=== PATIENT | female | born 1950 | race Caucasian/White ===

== ENCOUNTER 2024-05-04 16:08 | Emergency (ER) | payer MEDICARE, SELFPAY ==
[2024-05-04 16:21] VITALS: BP 132/62
[2024-05-04 17:55] LABS: % Basophils 0.5 % (0-2); % Eosinophils 1.4 % (0-6); % Immature Granulocytes 0.3 % (0-0.5); % Lymphocytes 27.4 % (20.5-51.1); % Monocytes 6.9 % (1.7-9.3); % Neutrophils 63.5 % (42.2-75.2); Absolute Eosinophils 0.1 10^3/uL (0-0.7); Absolute Lymphocytes 1.6 10^3/uL (1.2-3.4); Absolute Monocytes 0.4 10^3/uL (0.1-0.6); Absolute Neutrophils 3.7 10^3/uL (1.4-6.5); Hematocrit 35.6 % (37.0-47.0); Mean Corp Hgb Conc. 33.7 g/dL (33.0-37.0); Mean Corpuscular Hgb 31.7 pg (27.0-31.0); Mean Corpuscular Volume 93.9 fL (81.0-99.0); Mean Platelet Volume 11.1 fL (7.4-10.4); Nucleated Red Blood Cells % 0 %; Platelet Count 209 10^3/uL (130-400); Red Blood Cell Count 3.79 10^6/uL (4.20-5.40); Red Cell Dist. Width 13.1 % (11.5-14.5); White Blood Cell Count 5.8 10^3/uL (4.8-10.8)
[2024-05-04 17:56] LABS: Urine Albumin Trace (Neg - Trace); Urine Bilirubin 1+ (Negative); Urine Character Clear (Clear); Urine Color Yellow; Urine Glucose Negative (Negative); Urine Ketone Negative (Negative); Urine Leukocyte Trace (Negative); Urine Nitrite Negative (Negative); Urine Occult Blood Negative (Negative); Urine Specific Gravity 1.015 (<1.030); Urine Urobilinogen Negative (Neg - 1+); Urine pH 6.5 (5.0-9.0)
[2024-05-04 18:20] LABS: ALT (SGPT) 54 U/L (0-35); AST (SGOT) 48 U/L (14-36); Albumin 4.2 g/dl (3.5-5.0); Alkaline Phosphatase 131 U/L (38-126); Blood Urea Nitrogen 25 mg/dl (7-17); Carbon Dioxide 27 mmol/L (22-30); Chloride 102 mmol/L (98-107); Glucose 129 mg/dl (70-99); Potassium 4.3 mmol/L (3.5-5.1); Sodium 136 mmol/L (135-145); Total Bilirubin 0.4 mg/dl (0.2-1.3); Total Protein 6.6 g/dl (6.3-8.2); eGFR 43.15
--- NOTE | 2024-05-04 18:23 | ED.GENMED ---
History of Present Illness
General
Chief Complaint: Urinary Symptoms
Source: patient
Time Seen by Provider: 05/04/24 17:04
History of Present Illness
History of Present Illness:
74-year-old female with past medical history of asthma/COPD, previous colon cancer (treated over 20 years ago) and aof-rbtfylr-yawxwdxrc diabetes presenting to the ER stating she has felt as if she has had difficulty urinating since 11:30 PM
yesterday evening. Patient states that over the last 2 years she has felt a constant urge to urinate and sometimes is unable to do so, today seemed a little bit worse than usual which is what prompted her to come to the ER. She denies any fevers,
chills, rigors, back or flank pain, nausea or vomiting. She states she has not seen any medical provider for her difficulty urinating or occasional urinary hesitancy. She does note that her urinary stream feels a little bit weaker than it normally
is over the last 2 years. Patient has no other concerns at this time. She does note that she did not drink very much today noting she only had a small bottle of propel.
Past History
Past History
ED Past Medical History: Asthma, Cancer (colon ca in remission s/p rdx, chemo and partial bowel ressection in 2002), COPD, Hypercholesterolemia and NIDDM
ED Past Surgical History: Other (partial bowel ressection in 2002)
Social History
Tobacco: Non-smoker
Alcohol: None
Drug: None
Personal:
Living: with family
Employment: Retired
Family History
Family History: Other (nc)
Review of Systems
Review of Systems
All Other Systems: ROS reviewed and negative except as documented in HPI and ROS
Phy Exam
Physical Exam
Physical Exam:
GENERAL: Alert , in no apparent distress
EYE: clear conjunctiva b/l
HEAD: NCAT
ENT: mmm.
CARDIAC: Regular rate and rhythm .
LUNGS: Clear breath sounds bilaterally, no acute respiratory distress, no wheezes/rales/rhonchi
ABDOMEN: Soft, without focal tenderness, no r/g, no cvat
NEUROLOGICAL: Alert and oriented
SKIN: Warm and dry, skin intact.
MUSCULOSKELETAL: well perfused.
PSYCH: Normal and appropriate interaction.
Scores
Heart Failure Risk
Heart Failure Risk Score: Not Applicable
Heart Score for Chest Pain Patients
STEMI patient?: Not applicable
Withdrawal Assessment of Alcohol
Withdrawal Assessment Completed?: Not applicable
Course
Orders/Labs/Results
Orders:
Orders
05/04/24 17:04
Bladder Scan- Treatment ONCE
05/04/24 17:28
Urinalysis Reflex To Culture Urgent
Date Specimen was Collected: 05/04/24
Time Specimen was Collected: 17:26
Urine Microscopic Reflex Cult Urgent
Urine Culture Urgent
JONATHAN Source: U
Specimen Description:
Date Specimen was Collected: 05/04/24
Time Specimen was Collected: 17:26
05/04/24 17:39
Complete Blood Count/With Diff Urgent
Comprehensive Metabolic Panel Urgent
Abnormal Lab Results
05/04/24 05/04/24
17:28 17:39
RBC 3.79 L 10^6/uL
(4.20-5.40)
Hct 35.6 L %
(37.0-47.0)
MCH 31.7 H pg
(27.0-31.0)
MPV 11.1 H fL
(7.4-10.4)
BUN 25 H mg/dl
(7-17)
Creatinine 1.3 H mg/dL
(0.6-1.0)
Glucose 129 H mg/dl
(70-99)
AST 48 H U/L
(14-36)
ALT 54 H U/L
(0-35)
Alkaline Phosphatase 131 H U/L
(38-126)
Urine Bilirubin 1+ A
(Negative)
Leukocyte Esterase Rfl Trace A
(Negative)
Urine Bacteria (Reflex) Moderate A
(Negative)
05/04/24 17:39
05/04/24 17:39
Vital Signs
Initial and Last Documented VS:
Initial Vital Signs
Temp Pulse Resp BP Pulse Ox
98.1 F 77 18 132/62 93
05/04/24 16:21 05/04/24 16:21 05/04/24 16:21 05/04/24 16:21 05/04/24 16:21
Last Documented Vital Signs
Temp Pulse Resp BP Pulse Ox
98.1 F 66 16 145/58 98
05/04/24 16:21 05/04/24 18:29 05/04/24 18:29 05/04/24 18:29 05/04/24 18:29
MDM/Problems Addressed
Differential Diagnosis Includes:
UTI, bladder outlet obstruction, intrarenal kidney disease, prerenal dehydration due to poor oral intake today
MDM/Problems Addressed:
74-year-old female presenting the ER for evaluation reported difficulty urinating. Bedside bladder scan shows 250 mL of urine and postvoid residual shows 80 mL. Given patient had about 16 hours in between urinating I would have expected
significantly more urine within patient's bladder and I suspect that she has not had much oral intake today which is the likely cause of her diminished urinary output. Will check patient's labs to evaluate her renal function as well as
electrolytes. Urinalysis to be sent. Given patient's symptoms have been ongoing for approximately 2 years I do suspect this is more likely a chronic issue as opposed to acute and patient would likely benefit from urology follow-up. I will also
notify patient's primary care to try and expedite follow-up.
*Pulse Oximetry
Patient hypoxic: no
*Critical Care Note
Total Time (30-74mins, 75-104mins- exclusive of procedures): Not Applicable
Data Reviewed
Review of Other/Old Records Reveals: Labs and Records
Source: patient
Patient Management
Discussion with other providers: PCP
Escalation/DeEscalation of care consider admission/obs:
Patient's labs are noted for mild ZAC. Patient's BUN is slightly elevated at 25 which correlates with patient's poor p.o. intake. Patient also has very mild LFT elevation. I did offer IV fluids however patient states she would just like to go
home and continue with p.o. hydration. Following discussion of labs patient did request she have medication for constipation as she also notes this is a chronic issue for her. We did discuss some dietary modifications she can make as well as did
send a prescription for MiraLAX and Colace to patient. I notified patient's primary care provider of labs and ER workup. They will follow-up as an outpatient.
ED Attending Note
-
Portions of this chart may have been created with voice recognition software.� Occasional wrong word or��sound alike� substitutions may have occurred due to the inherent limitations of voice recognition software.
Discharge Plan
Departure
Patient Disposition: Home (Routine Discharge)
Date of Disposition: 05/04/24
Time of Disposition: 18:54
Patient with high blood pressure during this ER visit?: Yes
Discharge Problem:
Urinary hesitancy
Instructions: Acute kidney injury
Prescriptions:
New
polyethylene glycol 3350 [Gavilax] 17 gram powder in packet
17 g PO DAILY PRN (Reason: Constipation) Qty: 14 0RF
docusate sodium [Colace] 100 mg capsule
100 mg PO BID Qty: 10 0RF
No Action
fluticasone propion-salmeterol [Advair Diskus] 1 DISK blister with device
1 puff inhalation DAILYPRN PRN (Reason: shortness of breath)
ibuprofen 200 MG tablet
200 mg PO Q4HPRN PRN (Reason: pain)
clonazepam 1 MG tablet
1 mg PO HS Qty: 30 0RF
metformin 500 MG tablet
500 mg PO DAILY Qty: 30 0RF
venlafaxine [Effexor XR] 150 MG capsule,extended release 24hr
150 mg PO BID Qty: 60 0RF
doxepin 10 MG/ML concentrate
50 mg PO HS Qty: 150 0RF
gabapentin 300 MG capsule
300 mg PO HS Qty: 30 0RF
metformin 500 MG tablet
500 mg PO BID Qty: 20 1RF
clonazepam 1 mg tablet
1 mg PO BID Qty: 14 0RF
Referrals:
Reba Godinez MD [Family Provider] -
Jesus Alberto Ovalle MD [Active] - (Urology - Please call for appointment)
Interventions
Interventions:
*Risk Screen - Suicide Last Done: 05/04/24 16:21
*General Assessment Last Done: 05/04/24 16:21
*Neglect/Abuse Screening Last Done: 05/04/24 16:21
ED- Fall Risk Assessment Last Done: 05/04/24 17:22
*Nursing Disposition Last Done: 05/04/24 19:05
ED-Female Genitourinary Assessment Last Done: 05/04/24 17:21
Discharge Date and Time
Discharge Date/Time: 05/04/24 19:06
Print Language: PERSIAN
[2024-05-04 18:24] LABS: Urine Bacteria Moderate (Negative); Urine Red Blood Cell 0-2 /HPF (0-2)
[2024-05-04 18:29] VITALS: BP 145/58
== END 2024-05-04 19:06 | disposition home or self-care (01) ==
LOC: EMR 16:08
PROVIDERS: Physician Assistant Medical; EMERGENCY PHYSICIAN Emergency Medicine; FAMILY PHYSICIAN Family Medicine
DX: R39.11 Hesitancy of micturition (principal); J44.89 Other specified chronic obstructive pulmonary disease; E78.00 Pure hypercholesterolemia, unspecified; E11.9 Type 2 diabetes mellitus without complications; Z85.038 Personal history of other malignant neoplasm of large intestine
CPT/HCPCS: 99283; 80053; 81003; 81015; 85025; 87086

== ENCOUNTER → 2024-09-02 11:27 | Outpatient (REF) | payer MEDICARE, SELFPAY | LOC: RAD 11:27 | PROVIDERS: ATTENDING PHYSICIAN Nurse Practitioner Family | DX: M54.50 Low back pain, unspecified (principal) | CPT/HCPCS: 72110 ==

== ENCOUNTER → 2024-09-04 11:22 | Outpatient (REF) | payer MEDICARE, SELFPAY | LOC: WDC 11:22 | PROVIDERS: ATTENDING PHYSICIAN Nurse Practitioner Family | DX: Z12.31 Encounter for screening mammogram for malignant neoplasm of breast (principal) | CPT/HCPCS: 77063; 77067 ==

== ENCOUNTER 2025-08-24 08:56 | Inpatient (IN) | payer MEDICARE, SELFPAY ==
[2025-08-24] VITALS (23 sets, daily range): BP systolic 119–155; BP diastolic 50–112; BMI 29.2; BMI 29.3
--- NOTE | 2025-08-24 03:37 | ED.GENMED ---
History of Present Illness
<Vickie Dacosta PA-C - Last Filed: 08/24/25 07:31>
General
Chief Complaint: Musculo-Skeletal Complaint
Source: patient
Exam Limitations: none
Time Seen by Provider: 08/24/25 03:24
Nursing documentation reviewed up to this point in time: agreed with
History of Present Illness
History of Present Illness:
Note:
CHIEF COMPLAINT(S)
Fall with right ankle pain and swelling.
HISTORY OF PRESENT ILLNESS
The patient is a 75-year-old female with pmh of asthma, COPD, hlp, ADHD, anxiety, depression, diabetes, who presented with right ankle pain following a fall that occurred approximately one week ago. She reports that she went to the bathroom, which
has a ceramic floor, and fell. During the fall, she twisted her left ankle, resulting in bruising and significant pain. The patient describes the bruise as having been purple, extending along her leg. She reports that the pain is primarily in the
foot and the ankle, especially the back of the ankle. She is able to walk short distances, approximately 20 feet, with a perfectly flat foot without much pain, but she is unable to weight-bear fully due to discomfort. The patient states, �Even
though I can walk with a perfectly flat foot and it hurts a lot.� She denies head trauma, loss of consciousness, neck pain, chest pain, abdominal pain. The patient expresses concern regarding potential surgery and worries about increased injury risk
due to balance issues.
PAST MEDICAL AND SURGICAL HISTORY
The patient denies previous fractures, surgeries on the feet or legs, or any bone-related surgeries.
SOCIAL DETERMINANTS AFFECTING HEALTH
The patient lives at home with her son and is worried about mobility within her home given her current condition. The layout of her house, with steps leading to the bathroom, may pose additional risks due to her balance issues. She would be unable
to use crutches
PHYSICAL EXAM
General: Alert, no acute distress.
Skin: Warm, dry.
Head: Normocephalic, atraumatic.
Neck: Supple, trachea midline. No midline spinal tenderness.
Eye, Ears, Nose, Mouth and Throat: Oral mucosa moist.
Cardiovascular: Regular rate and rhythm. Normal peripheral perfusion, no edema.
Respiratory: Respirations are non-labored.
Gastrointestinal: No abdominal tenderness to palpation. Abdomen nondistended.
Back: Normal range of motion, normal alignment.
Musculoskeletal: Pain and tenderness noted over the right ankle with bruising, no proximal tenderness. No tenderness to the anterior knee. No pain with roation of the hip.
Neurological: Sensation intact. CN II-XII intact. Alert and oriented to person, place, time, and situation, no focal neurological deficit observed.
Psychiatric: Cooperative, appropriate mood & affect.
PROBLEM LIST
Acute:
1. Left tibia fracture.
PLAN
1. Splint the left ankle to prevent movement and potential displacement of the fracture.
2. Consult orthopedics for further evaluation and management; possible surgical intervention due to fracture displacement.
3. Administer analgesics as needed for pain management.
4. Address earwax buildup following stabilization and orthopedic consultation.
DIFFERENTIAL DIAGNOSIS
The Differential Diagnosis includes, in no particular order and is not limited to:
1. Fracture of distal tibia.
2. Sprain or ligament injury of the ankle.
3. Osteoarthritis exacerbation.
4. Soft tissue contusion or hematoma.
5. Balance impairment due to vestibular issues.
6. Osteoporosis implicating fracture risk.
7. Urinary tract infection.
8. Benign paroxysmal positional vertigo (BPPV), given balance issues.
9. Previous neurological conditions leading to balance issues.
10. Medication side effects contributing to urinary symptoms and balance.
CHART REVIEW
Reviewed ER physician documentation from 05/04/2024
Reviewed discharge summary from 05/08/2018, patient seen for metabolic encephalopathy and severe metabolic acidosis of unclear etiology
MDM/DISPOSITION
75-year-old female with a past medical history of hyperlipidemia, asthma, diabetes, presents here today with concerns of right ankle pain following a fall 7 days ago. She reports that pain has gotten worse and she has been unable to bear weight.
On exam, she is neurovascular intact. She has significant swelling over the right ankle and tenderness. X-ray reveals distal tibia fracture. Reviewed case with Dr. Babin, orthopedist on-call. Concern for complex fracture, CT scan ordered.
Dusty will be on patient's case from an orthopedic standpoint will keep patient NPO.
Past History
<Vickie Dacosta PA-C - Last Filed: 08/24/25 07:31>
Past History
ED Past Medical History: Asthma, Cancer (colon ca in remission s/p rdx, chemo and partial bowel ressection in 2002), COPD, Hypercholesterolemia and NIDDM
ED Past Surgical History: Other (partial bowel ressection in 2002)
Social History
Tobacco: Non-smoker
Alcohol: None
Drug: None
Personal:
Living: with family
Employment: Retired
Family History
Family History: Other (nc)
Phy Exam
<Vickie Dacosta PA-C - Last Filed: 08/24/25 07:31>
Physical Exam
Physical Exam:
see hpi
Course
<Vickie Dacosta PA-C - Last Filed: 08/24/25 07:31>
Orders/Labs/Results
Orders:
Orders
08/24/25 02:50
Ankle, Right 3 view CR [CR Ankle - Right Min 3 Views *] Urgent
Comment:
Reason For Exam: injury
08/24/25 04:08
IV Insert/Care/Rem.- Treatment PRN
Short Leg Right-Treatment ONCE
Stirrup Splint Right-Treatment ONCE
08/24/25 04:54
Ketorolac [Toradol] 15 mg IV NOW STA
08/24/25 04:59
Basic Metabolic Panel Urgent
Comment: NO K
Complete Blood Count/With Diff Urgent
08/24/25 Breakfast
NPO
Allow oral meds: Yes
Allow clear liquids: No
08/24/25 06:06
Lower Ext Right wo Contrast CT [CT Lower Ext W/o Iv Cont Rt] Urgent
Comment:
Reason For Exam: right distal tibia fracture
08/24/25 07:11
CLONAZepam [CLONAZepam ODT] 0.5 mg PO NOW STA
Abnormal Lab Results
08/24/25
04:59
RBC 4.08 L 10^6/uL
(4.20-5.40)
MPV 11.0 H fL
(7.4-10.4)
Abs Immat Gran (auto) 0.1 H 10^3/uL
(0-0.05)
Immature Gran % 0.6 H %
(0-0.5)
BUN 24 H mg/dl
(7-17)
Glucose 140 H mg/dl
(70-99)
08/24/25 04:59
08/24/25 04:59
Vital Signs
Initial and Last Documented VS:
Initial Vital Signs
Temp Pulse Resp BP Pulse Ox
98.3 F 73 20 138/55 97
08/24/25 02:26 08/24/25 02:26 08/24/25 02:26 08/24/25 02:26 08/24/25 02:26
Last Documented Vital Signs
Temp Pulse Resp BP Pulse Ox
98.3 F 69 16 146/55 98
08/24/25 02:26 08/24/25 07:16 08/24/25 07:16 08/24/25 07:16 08/24/25 07:16
<Fish Starks, DO - Last Filed: 08/24/25 04:30>
Orders/Labs/Results
Orders:
Orders
08/24/25 02:50
Ankle, Right 3 view CR [CR Ankle - Right Min 3 Views *] Urgent
Comment:
Reason For Exam: injury
08/24/25 04:08
IV Insert/Care/Rem.- Treatment PRN
Short Leg Right-Treatment ONCE
Stirrup Splint Right-Treatment ONCE
08/24/25 04:54
Ketorolac [Toradol] 15 mg IV NOW STA
08/24/25 04:59
Basic Metabolic Panel Urgent
Comment: NO K
Complete Blood Count/With Diff Urgent
08/24/25 Breakfast
NPO
Allow oral meds: Yes
Allow clear liquids: No
08/24/25 06:06
Lower Ext Right wo Contrast CT [CT Lower Ext W/o Iv Cont Rt] Urgent
Comment:
Reason For Exam: right distal tibia fracture
08/24/25 07:11
CLONAZepam [CLONAZepam ODT] 0.5 mg PO NOW STA
Abnormal Lab Results
08/24/25
04:59
RBC 4.08 L 10^6/uL
(4.20-5.40)
MPV 11.0 H fL
(7.4-10.4)
Abs Immat Gran (auto) 0.1 H 10^3/uL
(0-0.05)
Immature Gran % 0.6 H %
(0-0.5)
BUN 24 H mg/dl
(7-17)
Glucose 140 H mg/dl
(70-99)
08/24/25 04:59
08/24/25 04:59
Vital Signs
Initial and Last Documented VS:
Initial Vital Signs
Temp Pulse Resp BP Pulse Ox
98.3 F 73 20 138/55 97
08/24/25 02:26 08/24/25 02:26 08/24/25 02:26 08/24/25 02:26 08/24/25 02:26
Last Documented Vital Signs
Temp Pulse Resp BP Pulse Ox
98.3 F 69 16 146/55 98
08/24/25 02:26 08/24/25 07:16 08/24/25 07:16 08/24/25 07:16 08/24/25 07:16
<Vickie Dacosta PA-C - Last Filed: 08/24/25 07:31>
*Pulse Oximetry
SaO2: 97
Oxygen Mode of Delivery: Room air
Patient hypoxic: no
*Critical Care Note
Total Time (30-74mins, 75-104mins- exclusive of procedures): Not Applicable
ED Attending Note
<Vickie Dacosta PA-C - Last Filed: 08/24/25 07:31>
-
Portions of this chart may have been created with voice recognition software.� Occasional wrong word or��sound alike� substitutions may have occurred due to the inherent limitations of voice recognition software.
<Fish Starks DO - Last Filed: 08/24/25 04:30>
ED Attending Note
Patient seen and examined by attending physician: Yes
I performed the substantive portion of visit, reviewed & personally made and approve the management plan that is documented in note by myself or JAYLON.: Yes
ED Attending Note:
Note:
CHIEF COMPLAINT(S)
Inability to bear weight on the leg due to fractures.
HISTORY OF PRESENT ILLNESS
The patient is a 75-year-old female who presented with an inability to bear weight on her leg due to fractures, which she described as her first experience with broken bones. The injury occurred approximately eight days prior. She expressed
difficulty in mobilizing to the bathroom and reported needing to pull on both sides to navigate to the bathroom due to the pain and instability. The patient mentioned experiencing urgency with urination, noting, 'it doesnt give me any notice.'
PHYSICAL EXAM
General: Alert, no acute distress.
Skin: Warm, dry.
Head: Normocephalic, atraumatic.
Neck: Supple, trachea midline.
Eyes, Ears, Nose, Mouth and Throat: Oral mucosa moist.
Cardiovascular: Normal peripheral perfusion, No edema.
Respiratory: Respirations are non-labored.
Gastrointestinal: Abdomen nondistended.
Back: Normal range of motion, Normal alignment.
Musculoskeletal: Right leg splinted due to fractures.
Neurological: Alert and oriented to person, place, time, and situation. No focal neurological deficit observed.
Psychiatric: Cooperative, appropriate mood & affect.
PROBLEM LIST
Acute:
- Fractures of the leg with inability to ambulate
- Urinary urgency
PLAN
- The patient is to be admitted to the hospital for further evaluation and management of leg fractures.
- Splinting was performed for stabilization.
- Orthopedic consultation will be arranged to determine whether the treatment will be conservative with casting or if surgery is necessary.
- Urology consultation may be considered to address urinary urgency.
DIFFERENTIAL DIAGNOSIS
The Differential Diagnosis includes, in no particular order and is not limited to:
1. Fracture secondary to fall or trauma
2. Osteoporosis-related fragility fracture
3. Acute fracture due to underlying bone pathology
4. Degenerative joint disease
5. Urinary tract infection
6. Overactive bladder syndrome
7. Stress incontinence
8. Neurological disorder affecting bladder control
9. Hyperparathyroidism leading to bone fragility
10. Arthritis contributing to falls and fractures
Disposition:
SUMMARY OF ENCOUNTER
The patient, a 75-year-old female, presented to the emergency department with the inability to bear weight on her leg due to fractures. The injury occurred approximately eight days ago, with significant pain and difficulty in mobilizing. After an
initial evaluation and stabilization with splinting, an orthopedic consultation was arranged to assess the need for surgical intervention or conservative management via casting. Urology consultation was also considered due to reported urinary
urgency. The decision was made to admit the patient for further evaluation and management of leg fractures.
DISPOSITION
Admit
ASSESSMENT
The patient presents an ankle fracture with an inability to ambulate, complicated by urinary urgency.
MANAGEMENT OF THE PATIENTS CARE WAS DISCUSSED WITH
Case management and physical therapy consults were arranged for the patient.
PLAN
The patient is to be admitted to the hospital for further evaluation and management, including orthopedic consultation and potential surgical intervention or conservative management with casting. A urology consultation may be considered to address
urinary urgency.
DIAGNOSIS
- Ankle fracture (ICD-10: S82.899)
- Urinary urgency (ICD-10: R39.15)
Discharge Plan
Departure
Patient Disposition: Admit
Date of Disposition: 08/24/25
Time of Disposition: 06:02
Admit to: Med/Surg
Presentation/result/management discussed w/ accepting MD/DO: Hospitalist
Patient with high blood pressure during this ER visit?: Yes
Condition: Fair
Discharge Problem:
Fracture of distal end of right tibia, Ambulatory dysfunction
Prescriptions:
No Action
clonazepam 1 MG tablet
1 mg PO HS Qty: 30 0RF
clonazepam 1 mg tablet
1 mg PO BID Qty: 14 0RF
Referrals:
UNKNOWN - PT DOES,NOT KNOW [Family Provider]
Interventions
Interventions:
*Risk Screen - Suicide Last Done: 08/24/25 02:26
*General Assessment Last Done: 08/24/25 02:26
*Neglect/Abuse Screening Last Done: 08/24/25 02:26
*ED- Fall Risk Assessment Last Done: 08/24/25 02:26
*ED COVID-19 Vaccine History Last Done: 08/24/25 02:26
*ED Influenza Vaccine History Last Done: 08/24/25 02:26
ED-Musculoskeletal Assessment Last Done: 08/24/25 07:18
Discharge Date and Time
Print Language: VIETNAMESE
[2025-08-24] MEDS: TORADOL 15 MG IV (05:02)
[2025-08-24 05:30] LABS: Blood Urea Nitrogen 24 mg/dl (7-17); Calcium 9.4 mg/dl (8.4-10.2); Carbon Dioxide 25 mmol/L (22-30); Chloride 100 mmol/L (98-107); Estimated Creatinine Clearance 49 ml/min; Glucose 140 mg/dl (70-99); Sodium 135 mmol/L (135-145); eGFR 58.75
[2025-08-24 06:01] LABS: Hematocrit 37.3 % (37.0-47.0); Hemoglobin 12.4 g/dL (12.0-16.0); Mean Corp Hgb Conc. 33.2 g/dL (33.0-37.0); Mean Corpuscular Volume 91.4 fL (81.0-99.0); Nucleated Red Blood Cells % 0 %; Red Cell Dist. Width 13.5 % (11.5-14.5)
[2025-08-24 06:39] LABS: Platelet Count 225 10^3/uL (130-400)
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
--- NOTE | 2025-08-24 09:29 | CM ---
chart reviewed and spoke with pt at ED bedside
Lives with son in [address] [place] [address] [place]
Independent with ADLs
DOes not drive but son drives
no DME
PCP DR. Godinez in [place]
Rx plan yes
Pharmacy [facility]
no hx VN nor SNF
DCP is to go home with HHC vs SNF after PT consult
CM will continue to follow up for any dcp needs
--- NOTE | 2025-08-24 12:37 | PTCARENOTE ---
Received pt from ED via stretcher. Pt AAOX3. Pox: 96% RA. Pt denies pain. Call ybarra within reach. Plan of care ongoing.
--- NOTE | 2025-08-24 13:11 | W.PN.UPDATE ---
Update Note
Progress Note Update
75F right ankle fracture
- anticipate OR today with Dr. Montano, ankle ORIF
- elevate RLE 2-3 pillows
- ice behind the knee
- NWB RLE
- full consult note to follow
[2025-08-24] MEDS: TYLENOL 650 MG PO (13:25)
[2025-08-24] MEDS: WELLBUTRIN XL (24 hour extended release) 300 MG PO (13:26)
[2025-08-24] MEDS: BUSPAR 5 MG PO (13:26)
[2025-08-24] MEDS: EFFEXOR XR 225 MG PO (13:26)
[2025-08-24] MEDS: TYLENOL PO ×2 (16:07→20:00)
[2025-08-24] MEDS: CRESTOR PO (18:00)
[2025-08-24] MEDS: SEROQUEL PO (21:00)
[2025-08-24] MEDS: COLACE PO (21:00)
[2025-08-24] MEDS: SENOKOT PO (21:00)
[2025-08-24] MEDS: BUSPAR PO (21:00)
--- NOTE | 2025-08-24 21:42 | W.PN.SURGUPD ---
Surgical Update
Surgical Update
Patient is s/p right ankle trimalleolar ORIF
-NWB in posterior splint
-Multimodal analgesia
-PT/OT
-Continue ancef x24 hours
-To consider SNF placement upon DC
-Follow up with myself at [facility] in 10-14 days
[2025-08-25] VITALS (11 sets, daily range): BP systolic 109–154; BP diastolic 40–67; O2SAT 97
[2025-08-25] MEDS: TYLENOL PO (00:57)
--- NOTE | 2025-08-25 02:01 | VATNOTE ---
PT ARRIVED DTO UNIT POST OP FROM PACU. PT NOTSED TO HAVE A LARGE INFILTRATED AREA IN LUE FROM WRIST TO ABOVE ELBOW. NO DISCOLORATION OR WARMT NOTED. PT REPORTS MILD DISCOMFORT. PCN TO ENCOURAGE PT TO KEEP LUE ELEVATED ON PILLOW. VAT TO FOLLOW. GOOD
RADIAL PULSE AND CAPILLARY REFILL NOTED.
[2025-08-25] MEDS: TYLENOL 650 MG PO ×5 (04:53→21:51)
[2025-08-25] MEDS: FLUSH (NSS) 1 FLUSH IV ×2 (04:53→20:51)
[2025-08-25] MEDS: ANCEF 5 IV ×3 (04:54→20:50)
[2025-08-25] MEDS: COLACE 100 MG PO ×2 (08:30→20:50)
[2025-08-25] MEDS: SEROQUEL 200 MG PO ×2 (08:30→20:50)
[2025-08-25] MEDS: EFFEXOR XR 225 MG PO (08:30)
[2025-08-25] MEDS: BUSPAR 5 MG PO ×2 (08:30→20:50)
[2025-08-25] MEDS: WELLBUTRIN XL (24 hour extended release) 300 MG PO (08:31)
[2025-08-25] MEDS: SENOKOT 17.2 MG PO (08:31)
[2025-08-25 12:13] LABS: Glycohemoglobin (HgbA1c) 7.2 % (4.0-5.9)
[2025-08-25] MEDS: FLUSH (NSS) 2 FLUSH IV (12:27)
--- NOTE | 2025-08-25 13:32 | W.PN.HOSP.TC ---
Today's Communication/Plan
-
see note
Assessment / Plan
Assessment / Plan
CT RLE
1. ACUTE TRIMALLEOLAR FRACTURE of the RIGHT ANKLE.
2. Acute displaced fracture of the medial malleolus.
3. Acute posteriorly displaced fracture of the posterior malleolus.
4. Acute anteriorly displaced fracture of the anterior cortex of the distal fibula.
5. Severe acute disruption of the distal tibiofibular syndesmosis.
6. Severe lateral and posterior subluxation of the talus.
1. Right ankle fracture
From mechanical fall
s/p right ankle trimalleolar ORIF in 08/24
-Patient twisted and had a mechanical fall of right ankle approximately 1 week back
-CT of right lower extremity showing acute trimalleolar fracture of the right ankle
-Patient ankle splinted in ER by ER physician
-Orthopedic surgeon took patient to OR for ORIF on 08/24
-Continue pain control
-Patient will require SNF rehab placement. Currently nonweightbearing for right lower extremity
-Right lower extremity numbness still persist, anesthesia record reviewed and patient had retroperitoneal/popliteal fossa nerve block provided, possible slow recovery from the blocks. continue monitoring for neurological recovery
2. ADD
Depression/anxiety
-Patient on multitude of psychoactive medication including Wellbutrin/BuSpar/Klonopin/Adderall/Seroquel/Effexor
-Currently no signs of toxic encephalopathy, with need of pain medication during the stay will require further monitoring
3. Hyperlipidemia
-Maintain on home dose of Crestor
4. Asthma
-No signs of flare-up, chest examination clear
-Patient use as needed inhalers although not have used anything recently , will maintain on DuoNeb as needed for this hospital stay
DVTPPX -chemical prophylaxis contraindicated due to possible need of surgery. Lower extremity compression contraindicated due to ankle fracture
Full code
Anticipated Discharge: 24 - 48 hours
Subjective/Interval History
-
Date of Service: August 25, 2025
Resting comfortably in bed
Denies having excessive right ankle pain
Objective Data
-
Vital Signs:
Vital Signs
Temp Pulse Resp BP Pulse Ox
98.3 F 82 18 154/67 95
08/25/25 07:59 08/25/25 07:59 08/25/25 07:59 08/25/25 07:59 08/25/25 10:07
I&O
08/24/25 08/25/25 08/26/25
06:59 06:59 06:59
Intake Total 100 / 100
Balance 100 / 100
Review of Systems
-
Respiratory: Reports No Symptoms
Cardiac: Reports No Symptoms
Abdomen/GI: Reports No Symptoms
Physical Exam
-
General: Comfortable
Musculoskeletal: No Edema and Other (Right ankle dressing in place, splint in place)
Neuro: Awake, Alert, Oriented, No Motor Deficits and Nonfocal/Grossly Intact
Psych: Calm
--- NOTE | 2025-08-25 14:44 | W.PN.UPDATE ---
Update Note
Progress Note Update
POD#1 right ankle ORIF
Patient comfortable in bed.
Splint intact.
All toes are well perfused.
Unable to move toes (likely due to the nerve block)
Plan:
PT
Dispo planning
Follow up in the office in 10-14 days
[2025-08-25] MEDS: CRESTOR 10 MG PO (17:49)
[2025-08-25] MEDS: SENOKOT PO (20:50)
--- NOTE | 2025-08-25 22:53 | OR.RPT ---
Operative Report
Operative Report
Operative Report
Patient: Fany Buck

Date of Surgery: 08/24/2025
Surgeon: Anton Montano DPM
Assistants: Anton Magallanes DPM
Preoperative Diagnosis:
Dislocated right trimalleolar ankle fracture
Acute right ankle instability
Postoperative Diagnosis:
Same as above
Procedures Performed:
Open reduction and internal fixation (ORIF) of trimalleolar ankle fracture, without fixation of posterior lip (posterior malleolus) � CPT 01932
Syndesmotic fixation, right ankle � CPT 49456
Anesthesia:
General anesthesia with a regional block performed by anesthesia team
Hemostasis:
Thigh tourniquet which remained inflated to 300mmHg for the entirety of the procedure
Estimated Blood Loss:
Minimal
Implants:
2x Zunilda Medial Malleolus screws
1x Strkyer 4x plate secured with 4x 3.5mm screws
Complications:
None
Indications for Surgery:
The patient is a 75 year old female who sustained a dislocated right trimalleolar ankle fracture approximately 1 week prior to surgery. She presented with severe pain, inability to bear weight, gross deformity, and radiographic evidence of medial
malleolar displacement, fibular fracture, and syndesmotic widening. Given the instability, malalignment, and degree of dislocation, operative management with open reduction and internal fixation was clearly indicated to restore ankle congruity,
prevent long-term degenerative changes, and allow return to function. The risks, benefits, and alternatives were discussed, and
informed consent was obtained.
Procedure in Detail:
The patient was taken to the operating room and placed supine on the operating table. A bump was placed under the ipsilateral hip to internally rotate the limb. A well-padded tourniquet was applied to the right thigh. After induction of anesthesia,
the right lower extremity was prepped and draped in the usual sterile fashion. A surgical timeout was performed.
The fracture dislocation was noted to be unstable with significant displacement, especially medially and at the syndesmosis.
1. Medial Malleolus ORIF
A longitudinal incision was made over the medial malleolus. Blunt dissection was carried down through subcutaneous tissue, taking care to protect the saphenous vein and nerve. A severely displaced medial malleolar fragment was identified with
attached deltoid ligament.
The fracture surfaces were cleaned of hematoma and interposed tissue. An anatomic reduction was achieved using pointed reduction clamps. Once held in anatomic alignment, fixation was performed using two [place] cannulated screws placed perpendicular
to the fracture line. Post-fixation fluoroscopy confirmed anatomic alignment and excellent compression.
2. Fibular and syndesmosis ORIF
Attention was directed to the lateral side. A longitudinal incision was made over the distal fibula. Blunt dissection was carried through the subcutaneous tissues taking care to protect all neurovascular structures. Dissection was carried down to
the exposed a fibula. Fluoroscopy demonstrated persistent widening of the ankle mortise consistent with syndesmotic disruption.
A 4-hole Zunilda plate was then placed at the level of the ankle and was screwed with two screws, one in the most proximal hole and one in the most distal hole. The syndesmosis was reduced anatomically using a large reduction clamp placed across the
tibia and fibula. Once an anatomic reduction was confirmed fluoroscopically, fixation was performed using two bicortical screws placed through the fibular plate into the tibia. Post-fixation stress testing showed a stable mortise without residual
gapping. The posterior malleolar fragment was evaluated both directly and fluoroscopically. Following reduction and fixation of the medial malleolus, fibula, and syndesmosis, the posterior malleolus was found to be anatomic with no significant
displacement or step-off. Given the stability and minimal size of the fragment, direct fixation was not required.
All wounds were irrigated thoroughly with sterile saline. Deep tissues and periosteum was closed with 2-0 monocryl, subcutaneous tissues were closed with 3-0 monocryl, and skin was closed with 3-0 nylon. The tourniquet was released showed brisk
capillary refill and excellent perfusion of the foot.
A sterile dressing was applied followed by application of a well-padded posterior splint in neutral flexion.
Postoperative Plan:
Non-weightbearing on the right lower extremity
Elevation and strict splint care
DVT prophylaxis per protocol
Return in 10�14 days for wound check and suture removal
Transition to cast or CAM boot depending on healing and radiographs
[2025-08-26] MEDS: TYLENOL PO ×2 (04:00)
[2025-08-26 07:23] VITALS: BP 132/56
[2025-08-26 08:00] LABS: Hematocrit 31.5 % (37.0-47.0); Hemoglobin 10.4 g/dL (12.0-16.0); Mean Corp Hgb Conc. 33.0 g/dL (33.0-37.0); Mean Corpuscular Volume 94.6 fL (81.0-99.0); Platelet Count 221 10^3/uL (130-400); Red Cell Dist. Width 13.9 % (11.5-14.5)
[2025-08-26 08:25] LABS: Blood Urea Nitrogen 22 mg/dl (7-17); Calcium 8.5 mg/dl (8.4-10.2); Carbon Dioxide 30 mmol/L (22-30); Chloride 106 mmol/L (98-107); Estimated Creatinine Clearance 61 ml/min; Glucose 219 mg/dl (70-99); Potassium 3.3 mmol/L (3.5-5.1); Sodium 139 mmol/L (135-145); eGFR > 60.00
[2025-08-26] MEDS: TYLENOL 650 MG PO ×4 (09:25→19:51)
[2025-08-26] MEDS: WELLBUTRIN XL (24 hour extended release) 300 MG PO (09:25)
[2025-08-26] MEDS: EFFEXOR XR 225 MG PO (09:26)
[2025-08-26] MEDS: BUSPAR 5 MG PO (09:27)
[2025-08-26] MEDS: SEROQUEL 200 MG PO (09:27)
[2025-08-26] MEDS: SENOKOT 17.2 MG PO ×2 (09:28→19:46)
[2025-08-26] MEDS: COLACE 100 MG PO ×2 (09:29→19:46)
[2025-08-26] MEDS: DILAUDID 0.25 MG IV (10:08)
[2025-08-26] MEDS: KCL 20 MEQ PO (10:08)
--- NOTE | 2025-08-26 10:16 | W.PN.HOSP.TC ---
Today's Communication/Plan
-
see note
discharge planning for snf rehab
Assessment / Plan
Assessment / Plan
CT RLE
1. ACUTE TRIMALLEOLAR FRACTURE of the RIGHT ANKLE.
2. Acute displaced fracture of the medial malleolus.
3. Acute posteriorly displaced fracture of the posterior malleolus.
4. Acute anteriorly displaced fracture of the anterior cortex of the distal fibula.
5. Severe acute disruption of the distal tibiofibular syndesmosis.
6. Severe lateral and posterior subluxation of the talus.
1. Right ankle fracture
From mechanical fall
s/p right ankle trimalleolar ORIF in 08/24
-Patient twisted and had a mechanical fall of right ankle approximately 1 week back
-CT of right lower extremity showing acute trimalleolar fracture of the right ankle
-Patient ankle splinted in ER by ER physician
-Orthopedic surgeon took patient to OR for ORIF on 08/24
-Continue pain control
-Patient will require SNF rehab placement. Currently nonweightbearing for right lower extremity
-RLE examined with help of RN, no surgical site issue. see examination.
2. ADD
Depression/anxiety
-Patient on multitude of psychoactive medication including Wellbutrin/BuSpar/Klonopin/Adderall/Seroquel/Effexor
-Currently no signs of toxic encephalopathy, with need of pain medication during the stay will require further monitoring
3. Hyperlipidemia
-Maintain on home dose of Crestor
4. Asthma
-No signs of flare-up, chest examination clear
-Patient use as needed inhalers although not have used anything recently , will maintain on DuoNeb as needed for this hospital stay
5. Narcotic induced constipation
- hesitant to take meds
- ordered ducolax one dose now and miralax, will provide suppos/enema if no improvement
DVTPPX -chemical prophylaxis contraindicated due to possible need of surgery. Lower extremity compression contraindicated due to ankle fracture
Full code
Anticipated Discharge: Today
Subjective/Interval History
-
Date of Service: August 26, 2025
feeling better
some right ankle pain
complained of some pin and needles sensation mid leg down, which has improved
Objective Data
-
Labs:
Laboratory Results
08/26/25
07:39
WBC 5.9
Hgb 10.4 L
Hct 31.5 L
Plt Count 221
Sodium 139
Potassium 3.3 L
Chloride 106
Carbon Dioxide 30
BUN 22 H
Creatinine 0.8
Glucose 219 H
Calcium 8.5
Vital Signs:
Vital Signs
Temp Pulse Resp BP Pulse Ox
98.7 F 70 16 132/56 97
08/26/25 07:23 08/26/25 07:23 08/26/25 07:23 08/26/25 07:23 08/26/25 07:23
I&O
08/25/25 08/26/25 08/27/25
06:59 06:59 06:59
Intake Total 100 / 100 900 / 900
Balance 100 / 100 900 / 900
Review of Systems
-
Respiratory: Reports No Symptoms
Cardiac: Reports No Symptoms
Abdomen/GI: Reports No Symptoms
Physical Exam
-
General: Comfortable
Musculoskeletal: Other (Rt ankle - bi malleolar vertical surgical incision with sutures in place, no wound dehiscence, no drainage, no localized swelling/hematoma, good DP/PT pulse)
Neuro: Awake, Alert, Oriented, No Motor Deficits and Nonfocal/Grossly Intact
Psych: Calm
[2025-08-26] MEDS: DULCOLAX 10 MG PO (11:21)
[2025-08-26 11:48] VITALS: BP 124/51; PULSE 71; O2SAT 95
[2025-08-26 11:49] VITALS: BP 120/74
--- NOTE | 2025-08-26 12:20 | CM ---
Addendum entered by Nini Espana 08/26/25 12:34:
Pt doesn't want to make a decision without speaking to her son first. He is a stage driver and will no be home until 1-2 AM. She plans to speak to him tomorrow.
Plan: DC to SNF when facility is selected and bed is available. Pt will NOT need an authorization because she will meet the 3 day requirement.
Original Note:
Met with pt chairside. Pt is medically stable per Dr. Matthew Nam. PT rec SNF. CM Provided and reviewed Medicare Compare 5- star rating document for NFs for the [place] area. Pt states she anticipates discharge on Friday.
--- NOTE | 2025-08-26 14:31 | CM ---
Addendum entered by Nini Espana 08/26/25 12:34:
Pt doesn't want to make a decision without speaking to her son first. He is a armored car driver and will no be home until 1-2 AM. She plans to speak to him tomorrow.
Plan: DC to SNF when facility is selected and bed is available.
Original Note:
Met with pt chairside. Pt is medically stable per Dr. Matthew Nam. PT rec SNF. CM Provided and reviewed Medicare Compare 5- star rating document for NFs for the [place] area. Pt states she anticipates discharge on Friday.
--- NOTE | 2025-08-26 14:55 | W.PN.UPDATE ---
Update Note
Progress Note Update
75F is s/p right ankle trimalleolar ORIF. CFT wnl, sensation intact to pedal distributions, calf soft supple nontender to touch, motor funciton intact to toes
-NWB in posterior splint
-- discussed with patient importance of maintaining splint after surgery.
- Dressings to remain C/D/I
-Multimodal analgesia
-PT/OT
-To consider SNF placement upon DC
-Follow up with myself at [facility] in 10-14 days
[2025-08-26 15:47] VITALS: BP 106/41
[2025-08-26] MEDS: CRESTOR 10 MG PO (16:38)
[2025-08-26] MEDS: BUSPAR PO (23:03)
[2025-08-26] MEDS: SEROQUEL PO (23:03)
[2025-08-26 23:59] VITALS: BP 147/56
[2025-08-27] MEDS: TYLENOL 650 MG PO ×5 (00:34→23:17)
[2025-08-27] MEDS: TYLENOL PO ×2 (04:30→17:15)
--- NOTE | 2025-08-27 05:33 | PTCARENOTE ---
Pt aaox3 able to make her needs known,very anxious at times.Pt oob with 2 person assist.Pt wants to sit on the BSC for longer times & wants to be left alone, pt explained of fall risk and NWB on right leg,pt states she knows about it.Pt angry with
staff for not leaving her long on BSC,in the begining of shift pt was asking for stool softners which pt was provided with as she was complaining of no BM.Pt later had mulitple soft stools,then pt c/o needing medications to stop it.Pt was provided
with emotional & psychological support about plan of care,safety measures.
[2025-08-27 07:33] VITALS: BP 152/54
[2025-08-27 08:01] LABS: Hematocrit 31.9 % (37.0-47.0); Hemoglobin 10.6 g/dL (12.0-16.0); Mean Corp Hgb Conc. 33.2 g/dL (33.0-37.0); Mean Corpuscular Volume 93.0 fL (81.0-99.0); Platelet Count 233 10^3/uL (130-400); Red Cell Dist. Width 13.8 % (11.5-14.5)
[2025-08-27 08:27] LABS: Blood Urea Nitrogen 17 mg/dl (7-17); Calcium 8.4 mg/dl (8.4-10.2); Carbon Dioxide 31 mmol/L (22-30); Chloride 104 mmol/L (98-107); Estimated Creatinine Clearance 61 ml/min; Glucose 111 mg/dl (70-99); Potassium 3.3 mmol/L (3.5-5.1); Sodium 138 mmol/L (135-145); eGFR > 60.00
[2025-08-27 08:33] VITALS: BP 152/54
[2025-08-27] MEDS: ROXICODONE 5 MG PO (09:11)
[2025-08-27] MEDS: BUSPAR 5 MG PO ×2 (09:12→20:09)
[2025-08-27] MEDS: EFFEXOR XR 225 MG PO (09:12)
[2025-08-27] MEDS: SEROQUEL 200 MG PO ×2 (09:13→20:09)
[2025-08-27] MEDS: WELLBUTRIN XL (24 hour extended release) 300 MG PO (09:13)
[2025-08-27] MEDS: COLACE PO ×2 (09:14→20:04)
[2025-08-27] MEDS: SENOKOT PO ×2 (09:14→20:05)
[2025-08-27] MEDS: KCL 40 MEQ PO (10:20)
[2025-08-27] MEDS: DEBROX EAR DROPS 1 DROP OTIC ×2 (11:03→20:10)
--- NOTE | 2025-08-27 12:09 | W.PN.HOSP.TC ---
Today's Communication/Plan
-
snf rehab placement
Assessment / Plan
Assessment / Plan
CT RLE
1. ACUTE TRIMALLEOLAR FRACTURE of the RIGHT ANKLE.
2. Acute displaced fracture of the medial malleolus.
3. Acute posteriorly displaced fracture of the posterior malleolus.
4. Acute anteriorly displaced fracture of the anterior cortex of the distal fibula.
5. Severe acute disruption of the distal tibiofibular syndesmosis.
6. Severe lateral and posterior subluxation of the talus.
1. Right ankle fracture
From mechanical fall
s/p right ankle trimalleolar ORIF in 08/24
-Patient twisted and had a mechanical fall of right ankle approximately 1 week back
-CT of right lower extremity showing acute trimalleolar fracture of the right ankle
-Patient ankle splinted in ER by ER physician
-Orthopedic surgeon took patient to OR for ORIF on 08/24
-Continue pain control
-Patient will require SNF rehab placement. Currently nonweightbearing for right lower extremity
-RLE examined with help of RN on friday AM, no surgical site issue
2. ADD
Depression/anxiety
-Patient on multitude of psychoactive medication including Wellbutrin/BuSpar/Klonopin/Adderall/Seroquel/Effexor
-Currently no signs of toxic encephalopathy, with need of pain medication during the stay will require further monitoring
3. Hyperlipidemia
-Maintain on home dose of Crestor
4. Asthma
-No signs of flare-up, chest examination clear
-Patient use as needed inhalers although not have used anything recently , will maintain on DuoNeb as needed for this hospital stay
5. Narcotic induced constipation - resolved
- hesitant to take meds
- Ordered Dulcolax and patient having diarrhea. Hold MiraLAX today
6. Right ear impacted cerumen
- debrox otic drop ordered, reporting some hearing loos in rt ear
- will benefit with outpatient ENT follow up
DVT PPX -chemical prophylaxis contraindicated due to possible need of surgery. Lower extremity compression contraindicated due to ankle fracture
Full code
Anticipated Discharge: 24 - 48 hours
Subjective/Interval History
-
Date of Service: August 27, 2025
Patient lethargic/tired
Having some diarrhea from the laxatives provided
no new issues reported
Objective Data
-
Labs:
Laboratory Results
08/27/25
07:52
WBC 8.5
Hgb 10.6 L
Hct 31.9 L
Plt Count 233
Sodium 138
Potassium 3.3 L
Chloride 104
Carbon Dioxide 31 H
BUN 17
Creatinine 0.8
Glucose 111 H
Calcium 8.4
Vital Signs:
Vital Signs
Temp Pulse Resp BP Pulse Ox
99.4 F 79 18 152/54 97
08/27/25 07:33 08/27/25 07:33 08/27/25 07:33 08/27/25 07:33 08/27/25 08:15
I&O
08/26/25 08/27/25 08/28/25
06:59 06:59 06:59
Intake Total 900 / 900 680 / 680 240 / 240
Balance 900 / 900 680 / 680 240 / 240
Review of Systems
-
Respiratory: Reports No Symptoms
Cardiac: Reports No Symptoms
Abdomen/GI: Reports No Symptoms
Physical Exam
-
General: Comfortable
Musculoskeletal: Other (Rt ankle - bi malleolar vertical surgical incision with sutures in place, no wound dehiscence, no drainage, no localized swelling/hematoma, good DP/PT pulse)
Neuro: Awake, Alert, Oriented, No Motor Deficits and Nonfocal/Grossly Intact
Psych: Calm
[2025-08-27 15:00] VITALS: BP 125/45
[2025-08-27] MEDS: CRESTOR 10 MG PO (17:41)
[2025-08-27 23:14] VITALS: BP 123/45
[2025-08-28] MEDS: TYLENOL 650 MG PO ×5 (03:22→23:50)
[2025-08-28 07:05] VITALS: BP 128/62
[2025-08-28 08:12] LABS: Hematocrit 30.3 % (37.0-47.0); Hemoglobin 10.5 g/dL (12.0-16.0); Mean Corp Hgb Conc. 34.7 g/dL (33.0-37.0); Mean Corpuscular Volume 91.5 fL (81.0-99.0); Platelet Count 216 10^3/uL (130-400); Red Cell Dist. Width 14.0 % (11.5-14.5)
[2025-08-28 08:39] LABS: Blood Urea Nitrogen 19 mg/dl (7-17); Calcium 8.4 mg/dl (8.4-10.2); Carbon Dioxide 32 mmol/L (22-30); Chloride 106 mmol/L (98-107); Estimated Creatinine Clearance 61 ml/min; Glucose 152 mg/dl (70-99); Potassium 3.9 mmol/L (3.5-5.1); Sodium 139 mmol/L (135-145); eGFR > 60.00
[2025-08-28] MEDS: EFFEXOR XR 225 MG PO (09:39)
[2025-08-28] MEDS: BUSPAR 5 MG PO ×2 (09:39→19:52)
[2025-08-28] MEDS: WELLBUTRIN XL (24 hour extended release) 300 MG PO (09:39)
[2025-08-28] MEDS: DEBROX EAR DROPS 1 DROP OTIC ×2 (09:41→19:52)
[2025-08-28] MEDS: SEROQUEL PO (10:02)
[2025-08-28] MEDS: ROXICODONE 5 MG PO (10:04)
[2025-08-28] MEDS: COLACE PO ×2 (10:04→19:50)
[2025-08-28] MEDS: SENOKOT PO (10:11)
[2025-08-28] MEDS: ADDERALL 30 MG PO (12:34)
--- NOTE | 2025-08-28 13:12 | W.PN.HOSP.TC ---
Today's Communication/Plan
-
d/c planning for snf rehab
Assessment / Plan
Assessment / Plan
CT RLE
1. ACUTE TRIMALLEOLAR FRACTURE of the RIGHT ANKLE.
2. Acute displaced fracture of the medial malleolus.
3. Acute posteriorly displaced fracture of the posterior malleolus.
4. Acute anteriorly displaced fracture of the anterior cortex of the distal fibula.
5. Severe acute disruption of the distal tibiofibular syndesmosis.
6. Severe lateral and posterior subluxation of the talus.
1. Right ankle fracture
From mechanical fall
s/p right ankle trimalleolar ORIF in 08/24
-Patient twisted and had a mechanical fall of right ankle approximately 1 week back
-CT of right lower extremity showing acute trimalleolar fracture of the right ankle
-Patient ankle splinted in ER by ER physician
-Orthopedic surgeon took patient to OR for ORIF on 08/24
-RLE examined with help of RN on friday AM, no surgical site issue
-Continue pain control
-Patient will require SNF rehab placement. Currently nonweightbearing for right lower extremity
2. ADD
Depression/anxiety
-Patient on multitude of psychoactive medication including Wellbutrin/BuSpar/Klonopin/Adderall/Seroquel/Effexor
-Currently no signs of toxic encephalopathy, with need of pain medication during the stay will require continued monitoring
3. Hyperlipidemia
-Maintain on home dose of Crestor
4. Asthma
-No signs of flare-up, chest examination clear
-Patient use as needed inhalers although not have used anything recently , will maintain on DuoNeb as needed for this hospital stay
5. Narcotic induced constipation - resolved
- Had laxative induced diarrhea, regimen adjusted for patient to get stool softener with as needed laxative
6. Right ear impacted cerumen
- debrox otic drop ordered, reporting some hearing loos in rt ear
- will benefit with outpatient ENT follow up
DVT PPX -chemical prophylaxis contraindicated due to possible need of surgery. Lower extremity compression contraindicated due to ankle fracture
Full code
Anticipated Discharge: Within 24 hours
Subjective/Interval History
-
Date of Service: August 28, 2025
Subjectively feeling better
Continues to have some right ankle pain
No diarrhea
Objective Data
-
Labs:
Laboratory Results
08/28/25
07:13
WBC 5.4
Hgb 10.5 L
Hct 30.3 L
Plt Count 216
Sodium 139
Potassium 3.9
Chloride 106
Carbon Dioxide 32 H
BUN 19 H
Creatinine 0.8
Glucose 152 H
Calcium 8.4
Vital Signs:
Vital Signs
Temp Pulse Resp BP Pulse Ox
97.9 F 75 16 128/62 98
08/28/25 07:05 08/28/25 07:05 08/28/25 07:05 08/28/25 07:05 08/28/25 07:05
I&O
08/27/25 08/28/25 08/29/25
06:59 06:59 06:59
Intake Total 680 / 680 1160 / 1160
Balance 680 / 680 1160 / 1160
Review of Systems
-
Respiratory: Reports No Symptoms
Cardiac: Reports No Symptoms
Abdomen/GI: Reports No Symptoms
Physical Exam
-
General: Comfortable
Musculoskeletal: Other (Rt ankle - hema wrapped)
Neuro: Awake, Alert, Oriented, No Motor Deficits and Nonfocal/Grossly Intact
Psych: Calm
[2025-08-28] MEDS: ROXICODONE 10 MG PO ×3 (13:19→23:51)
[2025-08-28 15:00] VITALS: BP 119/45
[2025-08-28 15:48] VITALS: BP 134/54; PULSE 66; O2SAT 96
[2025-08-28 15:56] VITALS: BP 134/54; PULSE 67
[2025-08-28] MEDS: CRESTOR 10 MG PO (16:13)
[2025-08-28] MEDS: TYLENOL PO (16:15)
[2025-08-28] MEDS: SEROQUEL 200 MG PO (19:52)
[2025-08-28 23:31] VITALS: BP 129/48
[2025-08-29] MEDS: TYLENOL PO (03:50)
[2025-08-29 07:10] VITALS: BP 135/51
[2025-08-29] MEDS: TYLENOL 650 MG PO ×4 (08:10→21:31)
[2025-08-29] MEDS: ADDERALL 30 MG PO (08:10)
[2025-08-29] MEDS: WELLBUTRIN XL (24 hour extended release) 300 MG PO (08:10)
[2025-08-29] MEDS: BUSPAR 5 MG PO ×2 (08:11→21:30)
[2025-08-29] MEDS: DEBROX EAR DROPS 1 DROP OTIC ×2 (08:11→21:32)
[2025-08-29] MEDS: EFFEXOR XR 225 MG PO (08:11)
[2025-08-29] MEDS: COLACE PO ×2 (08:11→21:31)
[2025-08-29] MEDS: SEROQUEL 200 MG PO ×2 (08:11→21:30)
--- NOTE | 2025-08-29 09:46 | W.PN.HOSP.TC ---
Today's Communication/Plan
-
dc to SNF if bed available
Assessment / Plan
Assessment / Plan
CT RLE
1. ACUTE TRIMALLEOLAR FRACTURE of the RIGHT ANKLE.
2. Acute displaced fracture of the medial malleolus.
3. Acute posteriorly displaced fracture of the posterior malleolus.
4. Acute anteriorly displaced fracture of the anterior cortex of the distal fibula.
5. Severe acute disruption of the distal tibiofibular syndesmosis.
6. Severe lateral and posterior subluxation of the talus.
Assessment:
Right ankle fracture
- related to mechanical fall
- s/p right ankle trimalleolar ORIF in 08/24
- nonweightbearing for right lower extremity
- DVT ppx: ASA 325mg daily x 4 weeks; reviewed with Dr. Magallanes via TT on 08/29/25
- pain control
- PT/OT - SNF pending. Patient medically stable.
ADD
Depression/anxiety
- Patient on multitude of psychoactive medication including Wellbutrin/BuSpar/Klonopin/Adderall/Seroquel/Effexor
- currently no signs of toxic encephalopathy, with need of pain medication during the stay will require continued monitoring
Hyperlipidemia
- continue Crestor
Asthma
- No signs of flare-up, chest examination clear
- Patient use as needed inhalers although not have used anything recently , will maintain on DuoNeb as needed for this hospital stay
Narcotic induced constipation - resolved
- Had laxative induced diarrhea, regimen adjusted for patient to get stool softener with as needed laxative
Right ear impacted cerumen
- debrox otic drop ordered, reporting some hearing loos in rt ear
- will benefit with outpatient ENT follow up
DVT ppx: ASA started
Full code
Anticipated Discharge: Within 24 hours
Subjective/Interval History
-
Date of Service: August 29, 2025
no complaints at present, pain controlled
agreeable to SNF
Objective Data
-
Vital Signs:
Vital Signs
Temp Pulse Resp BP Pulse Ox
97.7 F 70 18 135/51 96
08/29/25 07:10 08/29/25 07:10 08/29/25 07:10 08/29/25 07:10 08/29/25 07:10
I&O
08/28/25 08/29/25 08/30/25
06:59 06:59 06:59
Intake Total 1160 / 1160 780 / 780
Balance 1160 / 1160 780 / 780
Physical Exam
-
General: No Apparent Distress
HEENT: Normocephalic and Atraumatic
Respiratory: Negative Wheezes
Cardiac: Regular Rhythm and S1/S2
GI: Soft
Genito-urinary: No Costovertebral Tender
Neuro: AO x 3
Psych: Calm
Data Reviewed
-
Total Time Spent with Patient (in minutes): 41
Labs: Labs Reviewed by me
[2025-08-29] MEDS: ASPIRIN 325 MG PO (11:10)
[2025-08-29 11:16] VITALS: BP 132/59
--- NOTE | 2025-08-29 11:47 | CM ---
Addendum entered by Saray Cuevas 08/29/25 14:03:
IMM completed.
Addendum entered by Saray Cuevas 08/29/25 13:00:
Text from [facility], bed available tomorrow morning.
MD and daughter updated and in agreement.
[facility]
report# [phone]

Ambulance transport forms completed.
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
Addendum entered by Saray Cuevas 08/29/25 12:48:
Spoke with patient bedside for additional referrals.
Patient does not want her son to have to drive too far and would prefer to stay in the hospital until a bed is available.
CM explained that is not possible, as she is medically cleared for d/c.
Patient agreeable for CM to speak with her daughter Analia - her phone # in [phone].
TC to Analia. Agreeable to [facility] and [facility].
Referrals placed.
Original Note:
Patient seen bedside.
Skilled referrals placed.
no beds available at [facility] or [facility].
Will discuss with patient.
Plan: skilled rehab once bed secured.
[2025-08-29 14:15] VITALS: BP 122/52; PULSE 79; O2SAT 96
[2025-08-29 15:25] VITALS: BP 129/77
[2025-08-29] MEDS: CRESTOR 10 MG PO (18:03)
[2025-08-29 23:00] VITALS: BP 133/63
[2025-08-30] MEDS: TYLENOL PO (00:30)
[2025-08-30] MEDS: TYLENOL 650 MG PO ×2 (03:55→07:33)
[2025-08-30] MEDS: EFFEXOR XR 225 MG PO (07:33)
[2025-08-30] MEDS: BUSPAR 5 MG PO (07:33)
[2025-08-30] MEDS: ADDERALL 30 MG PO (07:33)
[2025-08-30] MEDS: SEROQUEL 200 MG PO (07:33)
[2025-08-30] MEDS: ASPIRIN 325 MG PO (07:34)
[2025-08-30] MEDS: DEBROX EAR DROPS 1 DROP OTIC (07:34)
[2025-08-30] MEDS: WELLBUTRIN XL (24 hour extended release) 300 MG PO (07:34)
[2025-08-30] MEDS: COLACE PO (07:34)
[2025-08-30 08:20] VITALS: BP 148/55
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
== END 2025-08-30 10:23 | DRG 494 ==
LOC: 4 EAST ACU 08:56
PROVIDERS: Physician Assistant; Student in an Organized Health Care Education/Training Program; ADMITTING PHYSICIAN Hospitalist; ATTENDING PHYSICIAN Internal Medicine; EMERGENCY PHYSICIAN Student in an Organized Health Care Education/Training Program; OTHER PHYSICIAN Student in an Organized Health Care Education/Training Program
PROC: 0QSG04Z Reposition Right Tibia with Internal Fixation Device, Open Approach (ICD-10-PCS; 2025-08-25)
PROC: 0QSJ04Z Reposition Right Fibula with Internal Fixation Device, Open Approach (ICD-10-PCS; 2025-08-25)
DX: S82.851A Displaced trimalleolar fracture of right lower leg, initial encounter for closed fracture (principal); F32.A Depression, unspecified; Z85.038 Personal history of other malignant neoplasm of large intestine; E78.00 Pure hypercholesterolemia, unspecified; J44.89 Other specified chronic obstructive pulmonary disease; W19.XXXA Unspecified fall, initial encounter; F98.8 Other specified behavioral and emotional disorders with onset usually occurring in childhood and adolescence; K59.03 Drug induced constipation; T40.605A Adverse effect of unspecified narcotics, initial encounter; H61.21 Impacted cerumen, right ear; E11.9 Type 2 diabetes mellitus without complications; F41.9 Anxiety disorder, unspecified; S93.439A Sprain of tibiofibular ligament of unspecified ankle, initial encounter; Z79.899 Other long term (current) drug therapy
CPT/HCPCS: 73610; 73700; 76000; 80048; 83036; 85025; 85027; 96374; 97163; 97167; 97530; 97535; 99285

== ENCOUNTER → 2025-09-28 10:18 | Outpatient (REF) | payer MEDICARE, SELFPAY ==
[2025-09-28 11:17] LABS: Hematocrit 36.7 % (37.0-47.0); Hemoglobin 11.9 g/dL (12.0-16.0); Mean Corp Hgb Conc. 32.4 g/dL (33.0-37.0); Mean Corpuscular Volume 95.1 fL (81.0-99.0); Nucleated Red Blood Cells % 0 %; Platelet Count 196 10^3/uL (130-400); Red Cell Dist. Width 13.6 % (11.5-14.5)
[2025-09-28 11:47] LABS: ALT (SGPT) 16 U/L (0-35); AST (SGOT) 22 U/L (14-36); Albumin 4.1 g/dl (3.5-5.0); Alkaline Phosphatase 138 U/L (38-126); Blood Urea Nitrogen 30 mg/dl (7-17); Calcium 8.8 mg/dl (8.4-10.2); Carbon Dioxide 25 mmol/L (22-30); Chloride 101 mmol/L (98-107); Glucose 117 mg/dl (70-99); Potassium 3.9 mmol/L (3.5-5.1); Sodium 135 mmol/L (135-145); Total Protein 6.8 g/dl (6.3-8.2); eGFR 58.75
== END ==
LOC: OLABPATH 10:18
PROVIDERS: ATTENDING PHYSICIAN Internal Medicine
DX: Z79.899 Other long term (current) drug therapy (principal); J44.89 Other specified chronic obstructive pulmonary disease; E11.9 Type 2 diabetes mellitus without complications
CPT/HCPCS: 36415; 80053; 85025